=== PATIENT | male | born 1950 | race Caucasian/White ===

== ENCOUNTER → 2024-05-10 09:46 | Outpatient (REF) | payer MEDICARE, OTHER, SELFPAY | LOC: RAD 09:46 | PROVIDERS: ATTENDING PHYSICIAN Otolaryngology; FAMILY PHYSICIAN Family Medicine | DX: K21.9 Gastro-esophageal reflux disease without esophagitis (principal); R13.14 Dysphagia, pharyngoesophageal phase | CPT/HCPCS: 74221 ==

== ENCOUNTER → 2024-07-02 12:44 | Outpatient (REF) | payer MEDICARE, OTHER, SELFPAY | LOC: RAD 12:44 | PROVIDERS: ATTENDING PHYSICIAN Physician Assistant; FAMILY PHYSICIAN Family Medicine | DX: E04.2 Nontoxic multinodular goiter (principal) | CPT/HCPCS: 76536 ==

== ENCOUNTER 2025-02-11 16:42 | Observation (INO) | payer MEDICARE, OTHER, SELFPAY ==
[2025-02-11] VITALS (15 sets, daily range): BP systolic 121–173; BP diastolic 58–85; PULSE 65–71; BMI 27.2; BMI 25.2
[2025-02-11 11:25] LABS: Hematocrit 40.5 % (39.0-52.0); Hemoglobin 14.4 g/dL (13.0-18.0); Mean Corp Hgb Conc. 35.6 g/dL (33.0-37.0); Mean Corpuscular Volume 90.8 fL (80.0-94.0); Nucleated Red Blood Cells % 0 % (-); Platelet Count 191 10^3/uL (130-400); Red Cell Dist. Width 13.2 % (11.5-14.5)
[2025-02-11 11:49] LABS: ALT (SGPT) 28 U/L (0-50); AST (SGOT) 37 U/L (17-59); Albumin 4.3 g/dl (3.5-5.0); Alkaline Phosphatase 71 U/L (38-126); Blood Urea Nitrogen 28 mg/dl (9-20); Calcium 9.4 mg/dl (8.4-10.2); Carbon Dioxide 21 mmol/L (22-30); Chloride 106 mmol/L (98-107); Glucose 125 mg/dl (70-99); Potassium 4.2 mmol/L (3.5-5.1); Sodium 134 mmol/L (135-145); Total Protein 6.5 g/dl (6.3-8.2); eGFR > 60.00
--- NOTE | 2025-02-11 12:57 | ED.GENMED ---
History of Present Illness
General
Chief Complaint: Fainting/Passed Out
Source: patient
Time Seen by Provider: 02/11/25 12:46
History of Present Illness
History of Present Illness:
75-year-old male presents to the emergency room for evaluation after passing out at home. Patient and his were in the kitchen having breakfast when she heard a thud. She noticed patient laying on the ground but was not responsive. He did
grunt. No seizure-like activity. After about a minute or so the patient began to come around. He was conversant shortly thereafter. Patient has had a syncopal episode in the past. He had an episode of syncope after getting up out of a chair
quickly 2022 which resulted in a hip fracture. Patient denies having any chest pain or shortness of breath prior to the event. He does endorse having some crampy abdominal pain here in the emergency room prior to having a large bowel movement. He
believes he may have been having this type of pain prior to the event but is not 100 send sure. Patient recently started Aricept because he is been having some difficulty with remembering things.
Past History
Past History
ED Past Medical History: HTN, Hypercholesterolemia and IDDM
ED Past Surgical History: Orthopedic
Social History
Tobacco: Non-smoker
Alcohol: Occasional
Drug: None
Personal:
Living: with family
Phy Exam
Physical Exam
Physical Exam:
General: Awake, Alert, Oriented X3. No acute distress.
Vitals: unremarkable
Head: Atraumatic
Eyes: Pupils equal, EOMI
Throat: Airway intact, no exudates
Neck: Trachea midline
Lungs: Clear and equal b/l
Heart: Regular rate, no murmurs
Abd: Soft, Nontender, No pulsatile mass
Neuro: Nonfocal
Skin: Warm, dry, no rash
Extremities: pulses equal b/l, no edema
Course
Orders/Labs/Results
Orders:
Orders
02/11/25 11:04
Electrocardiogram (*1) Urgent
Reason for Study: Chest Pain
EKG- Treatment ONCE
02/11/25 11:11
Complete Blood Count/With Diff Urgent
Comprehensive Metabolic Panel Urgent
Glycohemoglobin (HgbA1c) Urgent
02/11/25 12:56
0.9% Sodium Chloride 1000 ml [Nss] 1,000 ml IV BOLUS
02/11/25 13:06
Urinalysis Reflex To Culture Urgent
Date Specimen was Collected: 02/11/25
Time Specimen was Collected: 12:58
Urine Microscopic Reflex Cult Urgent
02/11/25 Dinner
2200 calorie (18 carb) Diabetic
At Your Request: Full Participation
02/11/25 16:07
Admit/Transfer Patient As Directed
Co-Sign Provider:
Level of Care: Observation services
Assign to:: Telemetry
Physician / Group: Hospitalists
Diagnosis: Syncope
Reason for Telemetry: Syncope
Date to Stop Telemetry: 02/13/25
Time to Stop Telemetry: 11:00
02/11/25 16:08
PRN Pain Medication Management As Directed
May give lesser potent ordered pain med per pt: Yes
preference::
Protocol:: Medication orders for pain may be administered in a
manner that supports deferring to patient preference
when the pt is:
- Requesting an ordered lesser potent pain medication.
Least to most potent pain medications are defined
as: acetaminophen < NSAID < tramadol < opioids
(morphine, oxycodone, hydromorphone).
- Requesting a lesser dose of the same medication IF
ORDERED.
- Requesting a less intrusive route of administration
if both routes are prescribed by the provider (PO <
IV).
02/11/25 16:11
Code Status As Directed
Resuscitation Status: Full Code
12/09/25 16:18
Orthostatic Vital Signs As Directed
Orthostatic VS Frequency: Daily
Comment: in AM
02/11/25 17:24
TSH Reflex To Free T4 Urgent
02/11/25 18:23
Bisacodyl [Dulcolax] 10 mg RECTAL [id number] PRN
Docusate W/Senna [Senokot-S] 1 tablet PO BIDPRN PRN
Enoxaparin Sodium [Lovenox] 40 mg SC QPM
Polyethylene Glycol Powder [Miralax] 17 grams PO DAILYPRN PRN
02/11/25 18:23
Activity As Directed
Activity Level: As Tolerated
Vital Signs As Directed
Frequency: Per unit guidelines
DX Deep Vein Thrombosis Video Routine
02/11/25 20:00
Docusate Sodium [Colace] 100 mg PO BID
02/11/25 22:00
Famotidine [Pepcid] 40 mg PO HS
02/12/25 06:54
Basic Metabolic Panel IN AM
Complete Blood Count/No Diff IN AM
02/12/25 08:00
Aspirin Low Dose EC [Aspir Low (Enteric Coated)] 81 mg PO DAILY
Pantoprazole [Protonix] 40 mg PO DAILY
Pravastatin Sodium [Pravachol] 20 mg PO DAILY
Psyllium [Metamucil, Konsyl] 1 packet PO DAILY
Sertraline HCl [Zoloft] 50 mg PO DAILY
02/13/25 11:00
DC Protocol for Telemetry ONCE
Abnormal Lab Results
02/11/25 02/11/25
11:11 13:06
WBC 4.7 L 10^3/uL
(4.8-10.8)
RBC 4.46 L 10^6/uL
(4.70-6.10)
MCH 32.3 H pg
(27.0-31.0)
MPV 11.2 H fL
(7.4-10.4)
Sodium 134 L mmol/L
(135-145)
Carbon Dioxide 21 L mmol/L
(22-30)
BUN 28 H mg/dl
(9-20)
Glucose 125 H mg/dl
(70-99)
Hemoglobin A1c 6.1 H %
(4.0-5.9)
Urine Ketones 2+ A
(Negative)
Ur Occult Blood Reflex 1+ A
(Negative)
Urine RBC 7-10 A /HPF
(0-2)
Urine Bacteria (Reflex) Few A
(Negative)
Urine Albumin (Reflex) 2+ A
(Neg - Trace)
02/11/25 11:11
02/11/25 11:11
Vital Signs
Initial and Last Documented VS:
Initial Vital Signs
Temp Pulse Resp BP Pulse Ox
97.6 F 56 18 149/67 100
02/11/25 10:59 02/11/25 10:59 02/11/25 10:59 02/11/25 10:59 02/11/25 10:59
Last Documented Vital Signs
Temp Pulse Resp BP Pulse Ox
98.7 F 72 12 142/65 99
02/12/25 11:00 02/12/25 11:00 02/12/25 11:00 02/12/25 11:00 02/12/25 11:00
MDM/Problems Addressed
Differential Diagnosis Includes:
Electrolyte abnormality, renal failure, CVA or TIA, medication effect, dysrhythmia
MDM/Problems Addressed:
Patient presents after having a event where he collapsed at home. No clear explanation of his symptoms based upon his labs. He was observed on the front desk monitor and was noted to have episodes of fairly significant bradycardia down to the low
30s. He was symptomatic with this. Suspect that the Aricept he started on recently may be contributing. Patient will require admission for monitoring of his heart rate, further evaluation.
Chronic conditions affecting care: HTN
*Pulse Oximetry
SaO2: 100
Oxygen Mode of Delivery: Room air
Patient hypoxic: no
*EKG
Interpreted by ED Provider?: Yes
Heart Rate: 55
Rate: bradycardiac
Rhythm: sinus
Mcguffey: normal axis
Interval: normal interval
QRS Pattern: normal QRS
Ischemia: no ischemia
*Re Examiner Interpretation
Rate: bradycardiac
Interpretation: abnormal
Rhythm: sinus
*Critical Care Note
Total Time (30-74mins, 75-104mins- exclusive of procedures): Not Applicable
ED Attending Note
-
Portions of this chart may have been created with voice recognition software.� Occasional wrong word or��sound alike� substitutions may have occurred due to the inherent limitations of voice recognition software.
Discharge Plan
Departure
Patient Disposition: Admit
Date of Disposition: 02/11/25
Time of Disposition: 13:33
Admit to: Telemetry
Presentation/result/management discussed w/ accepting MD/DO: Hospitalist
Condition: Fair
Discharge Problem:
Symptomatic bradycardia
Interventions
Interventions:
*Risk Screen - Suicide Last Done: 02/11/25 18:30
*General Assessment Last Done: 02/11/25 11:45
*Neglect/Abuse Screening Last Done: 02/11/25 17:26
*ED COVID-19 Vaccine History Last Done: 02/11/25 18:30
*ED Influenza Vaccine History Last Done: 02/11/25 17:26
[facility] Fall Risk Assessment Tool Last Done: 02/11/25 17:26
*Nursing Disposition Last Done: 02/11/25 18:10
ED- Cardiac Assessment Last Done: 02/11/25 11:45
ED- Neurological Assessment Last Done: 02/11/25 11:45
Discharge Date and Time
Discharge Date/Time: 02/11/25 18:13
[2025-02-11] MEDS: NSS 1000 IV (13:07)
[2025-02-11 13:40] LABS: Urine Character Clear (Clear)
--- NOTE | 2025-02-11 17:02 | HPS.HSE ---
Family Physician
-
Family Physician: Riley Rocha
Chief Complaint
-
Syncope
History of Present Illness
Patient is a 75-year-old male [facility] significant for hypertension, hyperlipidemia, type 1 diabetes, GERD, anxiety and depression who presented to [facility] after having a syncopal episode at home. Patient states that he stood up after sitting in his
kitchen table drinking coffee this morning and then woke up on the floor. His said that he fainted and was unconscious for about 2 minutes. Patient denied any brain fog or confusion after regaining consciousness. Patient denied any tongue
biting or loss of control of bowel or bladder. Patient denied hitting his head, but does note that he hit his left elbow on the floor. Patient says this has happened to him once before in 2022 where patient had an episode of syncope where when he
fell he broke his hip and he did a hip replacement. Patient gets occasional dizziness when going from seating to standing, however he feels this most often associated with low blood sugars. Patient has had an insulin pump and blood sugar monitor
for 20 years. Patient's blood sugars were normal during his syncopal episode today. Of note patient has donepezil for memory loss within the last month as prescribed by his PCP.
ED course:
In the ED, patient was blood work was unremarkable. Vital signs: BP 149/67, HR 56, RR 18, O2 sat 100% on room air. Patient was placed on telemetry and noted to have heart rates in the 30s. EKG showed sinus bradycardia with no significant change
from prior EKG. Urinalysis was negative. 1 L normal saline was given. Patient noted to have another syncopal episode in the ED lasting 20 to 30 seconds. Vitals: BP 144/58, HR 64, RR 21 O2 sat 100% on RA.
Patient will be admitted to observation with telemetry for further workup of syncopal event.
Medical History
Past Medical History
Past Medical History: Reports Dementia, GERD, HTN, Hypercholesterolemia and IDDM
Past Surgical History: Reports Orthopedic
Social History
Tobacco: Former Smoker
Alcohol: Daily
Drug: None
Personal:
Living: With Family
Employment: Retired
Family History
Family History: Not pertinent
Allergies / Home Medications
Allergies reflects when Allergies were last updated in [facility].
Home Medications with original date entered in [facility]
Allergy/Medication List:
Allergies
Allergy/AdvReac Type Severity Reaction Status Date / Time
Cephalosporins Allergy Hives Verified 02/11/25 10:59
levofloxacin (From Levaquin) Allergy Hives Verified 02/11/25 10:59
Home Medications
aspirin 81 mg tablet 81 mg PO DAILY Blood Clot Prevention/Tx 10/14/22
famotidine 40 mg tablet 40 mg PO HS Gastrointestinal Issue 10/14/22
omeprazole 40 mg capsule,delayed release 40 mg PO DAILY GERD 10/14/22
sertraline 50 mg tablet 50 mg PO DAILY Mental Health/Anxiety 10/14/22
lisinopril 2.5 mg tablet 2.5 mg PO DAILY #30 tabs 10/25/22
Patient Own Insulin Pumps 1 sliding scale dose SC .VIA NOVOLOG 02/11/25
docusate sodium 100 mg capsule 100 mg PO BID Constipation 02/11/25
donepezil 5 mg tablet 5 mg PO HS Mental Health/Anxiety 02/11/25
pravastatin 20 mg tablet 20 mg PO DAILY High Cholesterol 02/11/25
psyllium 1 packet PO DAILY Constipation 02/11/25
Review of Systems
-
History Source: Patient
Constitutional: Reports No Symptoms
EENT: Reports No Symptoms
Respiratory: Reports No Symptoms
Cardiac: Reports No Symptoms
Abdomen/GI: Reports No Symptoms
: Reports No Symptoms
Musculoskeletal: Reports No Symptoms
Skin: Reports No Symptoms
Neurological: Reports No Symptoms
Endocrine: Reports No Symptoms
Hematologic/Lymphatic: Reports No Symptoms
Psych: Reports No Symptoms
Physical Exam
Vital Signs
Vital Signs
Temp Pulse Resp BP Pulse Ox
97.6 F 54 20 148/65 100
02/11/25 10:59 02/11/25 12:45 02/11/25 12:45 02/11/25 12:16 02/11/25 13:01
Physical Exam
General: Well Developed, Well Nourished, No Apparent Distress and Comfortable
HEENT: NormoCephalic, Anicteric and Moist mucous membranes
Respiratory: Clear
Cardiac: Regular Rhythm
GI: Soft, Non Tender, Non Distended and Other (Insulin pump in place)
Musculoskeletal: No Edema
Skin: Warm and Dry
Neuro: Awake, Alert and Oriented
Psych: Calm
Laboratory Results
-
02/11/25 11:11
02/11/25 11:11
Laboratory Results
Total Bilirubin 0.8 mg/dl (0.2-1.3) 02/11/25 11:11
AST 37 U/L (17-59) 02/11/25 11:11
ALT 28 U/L (0-50) 02/11/25 11:11
Alkaline Phosphatase 71 U/L (38-126) 02/11/25 11:11
Impression/Plan
-
IMPRESSION:
Syncopal episodes
Diabetes�insulin-dependent
Dementia
Hypertension
Arthritis
Hyperlipidemia
Depression/anxiety
GERD
PLAN:
# Syncopal episodes
- Unclear etiology
- Patient does have history of orthostatic hypotension
- Rhythm strip shows bradycardia
- Monitor on telemetry
- Consulted cardiology will see in a.m.
- Orthostatic vitals
- Hold donepezil and lisinopril
- Ordered echo
# Diabetes
- continue insulin pump.
- Patient was not hypoglycemic during syncopal episodes
- Consulted diabetes management
# Dementia
- Hold donepezil
# Right shoulder pain with arthritis was seen by orthopedics recently
# History of hypertension
- hold lisinopril
# Hyperlipidemia
- continue statin
# Depression
- continue sertraline
# GERD
- continue PPI, Pepcid
DVT PPx: Lovenox
CODE STATUS: Full code
[2025-02-11 17:27] LABS: Glucose - Point of Care 143 mg/dl (70-99)
--- NOTE | 2025-02-11 17:43 | W.PN.UPDATE ---
Update Note
Progress Note Update
Seen and examined the patient earlier today. Late documentation. Seen the patient with the resident. Agree with the plan of care. See changes in my documentation.
75-year-old pleasant man came in because he had a syncopal event. He stated that he stood up from the coffee table too fast and then passed out for a few minutes. He landed on the left elbow. Patient was started on Aricept 4 weeks ago. He had
another syncopal event 30 seconds in the ER blood pressure afterwards was stable at 173/85. Mildly bradycardic. Updated vitals showed heart rate 64 blood pressure 144/58 saturations 100%.
witnessed the episodes. 1st one was 2 min. He came around per . 2 nd episode in ER while sitting in the bed and a third on in ER
On examination pleasant awake alert
Cardiovascular system slightly bradycardic
Chest clear to auscultation abdomen soft and nontender
No pedal edema
Neuroexam appeared to be nonfocal no facial droop or motor deficit
Both EKGs were reviewed by me-sinus rhythm and sinus bradycardia with no ischemic changes
# Syncope-1 episode at home and 2 episodes in the ER
Unclear reason
Patient does have history of orthostatic hypotension
Rhythm strip shows bradycardia
Hold Aricept as this can cause bradycardia
Monitor on telemetry
Atropine as needed for bradycardia if patient has bradycardia
EKG showed sinus rhythm with no ischemia
Check head CT, EEG, TSH orthostatic vital signs
Hold Aricept and lisinopril
Check Echo, Troponins
Cardiology eval
# Diabetes-continue insulin pump. Patient was not hypoglycemic when this happened
# Dementia-hold Aricept
# Right shoulder pain with arthritis was seen by orthopedics recently
# History of hypertension-hold lisinopril
# Hyperlipidemia-continue statin
# Depression-continue sertraline
# GERD-continue PPI, Pepcid
# DVT prophylaxis-Lovenox
# Full code
Spoke to and updated.
D/W VITICULTURIST
time over 75 min
Part of this note was created using voice recognition system. Occasional wrong word or��sound alike� substitutions may have inadvertently occurred due to the inherent limitations of voice recognition software. If noted kindly bring it to my
attention for correction.
[2025-02-11 18:18] LABS: Troponin I < 0.012 ng/ml
[2025-02-11] MEDS: LOVENOX 40 MG SC (18:45)
[2025-02-11 18:56] LABS: Glucose - Point of Care 154 mg/dl (70-99)
--- NOTE | 2025-02-11 19:25 | PTCARENOTE ---
Received pt from ED into room 408-1. Pt able to stand/pivot to bed with assist x1-2. Pt denies dizziness. Pt lungs clear, apical regular, no edema, hypoactive bowel sounds, continent b/b, skin intact. Pt placed on bed alarm d/t recent syncope. Pt
has own insulin pump in LLQ of abdomen. Pt pre-dinner sugar 154. Pt administered 2.7 units of own insulin. Pt oriented to room, call isaac within reach, no needs at this time.
--- NOTE | 2025-02-11 20:30 | FALL ---
Addendum entered by Deena Becerra RN 02/12/25 04:15:
DIRECTOR OF INFECTION PREVENTION ordered neuro checks per unit guidelines, WNL.
Original Note:
Description of Fall:
pt bed alarm going off. this RN and PCT enter room and pt is found on ground. pt is assisted back into bed by this RN and PCT. VS temp 97.5, HR 62, RR 20, BP 160/69, 98 RA. pt stated 'i started to not feel good so i stood up.' pt reports dizziness,
lightheadedness, and increased salivation at time of fall. pt denies loss of consciousness. pt states he hit his head 'but not too bad,' and denies SHAW and pain. no injuries present from fall. pt educated on fall precautions and using call isaac for
assistance. DIRECTOR OF INFECTION PREVENTION and property supervisor made aware. DIRECTOR OF INFECTION PREVENTION came to bedside, no new orders at this time. call isaac within reach and bed alarm pulled in. plan of care ongoing.
Injuries Noted:
No injuries noted.
Action Taken:
pt educated on fall precautions and using call isaac for assistance.
DIRECTOR OF INFECTION PREVENTION and property supervisor notified.
Name of Provider Notified: EMIL Horan
[2025-02-11] MEDS: COLACE 100 MG PO (20:33)
[2025-02-11] MEDS: PEPCID 40 MG PO (20:33)
[2025-02-11 21:06] LABS: Glucose - Point of Care 193 mg/dl (70-99)
[2025-02-11] MEDS: PT'S OWN INSULIN PUMP - NovoLOG 0.8 UNIT SC (21:27)
[2025-02-12] VITALS (8 sets, daily range): BP systolic 113–165; BP diastolic 65–83; PULSE 66–88; O2SAT 99
[2025-02-12 00:21] LABS: Glucose - Point of Care 159 mg/dl (70-99)
[2025-02-12] MEDS: PT'S OWN INSULIN PUMP - NovoLOG 0.6 UNIT SC (00:32)
[2025-02-12 01:20] LABS: Troponin I 0.016 ng/ml
[2025-02-12] MEDS: PT'S OWN INSULIN PUMP - NovoLOG SC (06:09)
[2025-02-12 06:10] LABS: Glucose - Point of Care 119 mg/dl (70-99)
[2025-02-12 07:19] LABS: Glycohemoglobin (HgbA1c) 6.1 % (4.0-5.9)
--- NOTE | 2025-02-12 07:35 | CON.CAR ---
Addendum entered and electronically signed by Gerald Hicks DO 02/12/25 12:04:
I saw and examined the patient.
The Melter Caster's note was reviewed and I agree with the note.
Comment:
Patient is a very pleasant 75-year-old male with a past medical history significant for hypertension, hyperlipidemia, diabetes type 1 with insulin pump managed by endocrinology, mild cognitive impairment recently started on Aricept December 2024 who
presents following recurrent episodes of syncope. Patient reported loss of consciousness on Monday while making breakfast, he stood up to change position and then suddenly found himself on the floor. Patient's found him and for period of
time, patient was not speaking coherently without reported dysarthria. Mental status improved and was A&O x 3 but 911 was called and patient brought to the emergency room for evaluation. On presentation, patient initial EKG demonstrated sinus
bradycardia with one-to-one conduction and 55 bpm QT/QTc 468/447 ms. during evaluation in the emergency department, patient had an additional episode of syncope in the emergency room on the stretcher but without clear correlated change in heart rate
or blood pressure or rhythm change. A third episode again occurred in the emergency department while on stretcher without correlated change in heart rate, rhythm, or blood pressure. Review of telemetry does show episodes where patient is sinus
rhythm with sinus slowing and junctional escape which is brief and return of sinus rhythm with appropriate heart rate however these episodes do not appear to correlate to his episodes of syncope. Patient had an additional episode upon transferring
to his inpatient room where he felt lightheaded but without loss of consciousness. That episode similarly did not correlate with a sinus pause or junctional escape however was noted to be in sinus bradycardia with one-to-one conduction. Patient
has noted increasing lightheadedness and dizziness since initiation of Aricept in December however the syncope is a new symptom for him. Overall, he denies any chest pain, shortness of breath, palpitations, PND, orthopnea, edema, or focal weakness.
In review of rhythm strips and telemetry, again, patient noted to have episodes of sinus rhythm as well as sinus bradycardia and sinus slowing with a junctional escape which may be related to parasympathetic tone. In further review, patient states
that each of the episodes that he experienced with lightheadedness and dizziness, he also experienced significant nausea and salivation without emesis. Overnight last night, patient had another episode of sinus slowing with junctional escape
however this did not correlate with symptoms. Since that episode at 2100 on 02/11/2025, patient had no further episodes of sinus slowing with junctional escape. Patient's last dose of Aricept was Monday evening 02/10/2025. Remaining evaluation has
been unremarkable so far. Patient's echocardiogram normal LV RV function EF 70 to 75%, no significant valvular disease. Repeat EKG demonstrates Sinus rhythm 64 bpm QT/QTc 460/474 ms no significant change from prior. Troponin negative x 2 and
thyroid function normal. Renal function, electrolytes stable
GENERAL: no acute distress
EYE: sclera anicteric
NECK: Supple, no JVD, no carotid bruit appreciated
ENT: normal nose, moist mucosal membranes
CARDIAC: Regular rate and rhythm, +S1/S2, no murmur, rubs, or gallops
CHEST/PULMONARY: Normal effort, clear breath sounds
ABDOMEN: Soft, without focal tenderness or distention
NEUROLOGICAL: Alert and oriented x3
SKIN: Warm and dry, no rash
PSYCH: Normal and appropriate interaction.
A/P as below
Patient presented with recurrent syncope. At this time, it appears that this is related to adverse effect from medication (Aricept). Patient's episodes of near syncope and syncope have occurred without significant heart rate, rhythm, BP changes.
Patient has demonstrated episodes of sinus slowing which may be related to parasympathetic tone with junctional escape however these episodes did not appear to correlate with patient's syncopal or near syncopal episodes. Patient's last dose of
Aricept was 02/10/2025 in the evening. A documented adverse effect from this medication can be syncope, bradycardia.
At this current time, no indication for permanent pacemaker. Recommend holding/discontinuation of Aricept as this could be reversible cause. Continue telemetry monitoring.
Orthostatic vitals have been negative, will resume low-dose lisinopril again monitoring for symptoms. Recommend repeating orthostatic vitals in a.m.
Further recommendations to follow inpatient monitoring
Original Note:
Consultation
Consultation Request
Date/Time Consultation Requested: 02/11/2025 at 1749
Date/Time Consultation Performed: 02/12/2025 at 0821
Requesting Provider: Dr. Rowe
Performing Provider: Dr. Hicks
Reason for Consultation: Syncope, bradycardia
Medical History
-
History of Present Illness:
Patient came to the ER yesterday after an episode of syncope at home and cardiology is now consulted. About 1 month ago patient saw his PCP and was started on Aricept for mild cognitive impairment described as troubles with his short-term memory.
Patient had an episode yesterday morning where he awoke in his usual state of health and while standing in his kitchen helping his prepare breakfast he had an episode of what he describes as syncope and collapse without clear prodrome. The
patient's was not in the room at the time, but heard a thud and checked on the patient and found him on the floor. Patient was awake, but not speaking logically although no evidence of dysarthria. Patient became more weak and appeared to be
AAO x 3, but his still called 911 and had patient brought to the ER for evaluation. Patient had another episode of syncope in the ER while laying in the stretcher, but not clear if this correlated with any changes in BP or heart rate or
rhythm. That episode was also described as abrupt. Patient had a 3rd episode of syncope while in the ER which he may have had a prodrome to, again no known changes in heart rate or rhythm or BP. Patient had a 4th episode which correlated with a
fall once he reached his inpatient room and patient felt lightheaded and heart rate was in the 30s. Patient has been noted to have intermittent sinus bradycardia and nursing reports that when they check on him he describes feeling lightheaded.
Patient describes that sometimes he feels lightheaded with changing position such as seated to standing. Orthostatic VS were negative while I was in the room during this consultation.
PMH:
Mild cognitive impairment
Started on Aricept 12/17/2024
Type 1 diabetes on insulin pump managed by endocrinology
Hyperlipidemia
HTN
Past Medical History
Past Medical History: Other (In HPI)
Past Surgical History: Orthopedic (Right shoulder, right knee, right femur) and Other (Cataract and retinal procedures)
Social History
Tobacco: Non-Smoker
Alcohol: Daily (4 or more times a week)
Drug: None
Personal:
Living: With Family
Family History
Family History: CAD and Cancer
Allergies / Home Medications
Allergy/AdvReac Type Severity Reaction Status Date / Time
Cephalosporins Allergy Hives Verified 02/11/25 10:59
levofloxacin (From Levaquin) Allergy Hives Verified 02/11/25 10:59
�Medication �Instructions �Recorded �Confirmed �Type
aspirin 81 mg tablet 81 mg PO DAILY Blood Clot 10/14/22 02/11/25 History
Prevention/Tx
famotidine 40 mg tablet 40 mg PO HS Gastrointestinal Issue 10/14/22 02/11/25 History
omeprazole 40 mg capsule,delayed 40 mg PO DAILY GERD 10/14/22 02/11/25 History
release
sertraline 50 mg tablet 50 mg PO DAILY Mental 10/14/22 02/11/25 History
Health/Anxiety
lisinopril 2.5 mg tablet 2.5 mg PO DAILY #30 tabs 10/25/22 02/11/25 Rx
Patient Own Insulin Pumps 1 sliding scale dose SC .VIA 02/11/25 02/11/25 History
NOVOLOG
docusate sodium 100 mg capsule 100 mg PO BID Constipation 02/11/25 02/11/25 History
donepezil 5 mg tablet 5 mg PO HS Mental Health/Anxiety 02/11/25 02/11/25 History
pravastatin 20 mg tablet 20 mg PO DAILY High Cholesterol 02/11/25 02/11/25 History
psyllium 1 packet PO DAILY Constipation 02/11/25 02/11/25 History
Review of Systems
-
History Source: Patient
All other systems: Negative unless noted
Physical Exam
Vital Signs
Temp Pulse Resp BP Pulse Ox
98.6 F 86 18 117/66 98
02/12/25 03:00 02/12/25 03:00 02/12/25 03:00 02/12/25 03:00 02/12/25 03:00
Lab Results
Troponin I 0.016 ng/ml D 02/12/25 00:32
Impression / Plan
-
PCP: Dr. Rocha
Cardiology:
Endocrinology: Aldair JOHNSON
Impression:
Admitted with syncope
Sinus bradycardia and junctional bradycardia
Mild cognitive impairment
Started on Aricept 12/17/2024
Type 1 diabetes on insulin pump managed by endocrinology
Hyperlipidemia
HTN
Echo 02/12/2025: Report pending
Plan:
-Patient came to the ER yesterday after an episode of syncope at home and cardiology is now consulted. About 1 month ago patient saw his PCP and was started on Aricept for mild cognitive impairment described as troubles with his short-term memory.
Patient had an episode yesterday morning where he awoke in his usual state of health and while standing in his kitchen helping his prepare breakfast he had an episode of what he describes as syncope and collapse without clear prodrome. The
patient's was not in the room at the time, but heard a thud and checked on the patient and found him on the floor. Patient was awake, but not speaking logically although no evidence of dysarthria. Patient became more weak and appeared to be
AAO x 3, but his still called 911 and had patient brought to the ER for evaluation. Patient had another episode of syncope in the ER while laying in the stretcher, but not clear if this correlated with any changes in BP or heart rate or
rhythm. That episode was also described as abrupt. Patient had a 3rd episode of syncope while in the ER which he may have had a prodrome to, again no known changes in heart rate or rhythm or BP. Patient had a 4th episode which correlated with a
fall once he reached his inpatient room and patient felt lightheaded and heart rate was in the 30s. Patient has been noted to have intermittent sinus bradycardia and nursing reports that when they check on him he describes feeling lightheaded.
Patient describes that sometimes he feels lightheaded with changing position such as seated to standing. Orthostatic VS were negative while I was in the room during this consultation.
-ECG reviewed by me was initially sinus bradycardia and then NSR
-Telemetry reviewed by me shows intermittent episodes of sinus bradycardia and it looks like there was also an episode of junctional bradycardia
-Echo report pending for 02/12/2025
-Talked with patient and his by phone on the morning of 02/12/2025 reviewing his episodes of syncope and recent past medical history including the addition of Aricept on 12/17/2024. We discussed possible side effects related to Aricept
including bradycardia and orthostasis which may have precipitated his episodes of syncope and near syncope. We made a plan to continue observation on telemetry to look for higher grade heart block or pauses that would necessitate implantation of a
PPM, but if symptoms and telemetry improved with holding of Aricept we will hold off on PPM placement. Patient and are in agreement with plan
-Orthostatic VS in the room while I was present were negative
-Patient noted to be mildly HTN on the morning of 02/12/2025 his usual dose of lisinopril 2.5 mg daily is on hold. Given that his orthostatic VS were negative we will restart lisinopril 2.5 mg daily now, orders placed by me
-Patient is a type I diabetic that follows with endocrinology and is managed with an insulin pump. Blood sugars have been normal thus far this admission and HgbA1c was 6.1% on my review of labs from 02/11/2025. I reviewed the most recent notes from
his endocrinology visit on 02/07/2025
-I also reviewed patient's chart with his PCP in [facility]
-Patient is updated by me on the phone for 12 minutes on 02/12/2025
[2025-02-12 07:59] LABS: Hematocrit 38.0 % (39.0-52.0); Hemoglobin 13.4 g/dL (13.0-18.0); Mean Corp Hgb Conc. 35.3 g/dL (33.0-37.0); Mean Corpuscular Volume 89.6 fL (80.0-94.0); Platelet Count 136 10^3/uL (130-400); Red Cell Dist. Width 13.3 % (11.5-14.5)
[2025-02-12 08:23] LABS: Blood Urea Nitrogen 19 mg/dl (9-20); Calcium 8.9 mg/dl (8.4-10.2); Carbon Dioxide 20 mmol/L (22-30); Chloride 108 mmol/L (98-107); Estimated Creatinine Clearance 85 ml/min; Glucose 129 mg/dl (70-99); Potassium 4.2 mmol/L (3.5-5.1); Sodium 135 mmol/L (135-145); eGFR > 60.00
[2025-02-12] MEDS: ZOLOFT 50 MG PO (08:47)
[2025-02-12] MEDS: METAMUCIL, KONSYL PO ×2 (08:47→09:07)
[2025-02-12] MEDS: PRAVACHOL 20 MG PO (08:47)
[2025-02-12] MEDS: ASPIR LOW (ENTERIC COATED) 81 MG PO (08:47)
[2025-02-12] MEDS: PROTONIX 40 MG PO (08:47)
[2025-02-12] MEDS: COLACE 100 MG PO ×2 (08:47→20:36)
[2025-02-12] MEDS: ZESTRIL 2.5 MG PO (09:51)
[2025-02-12 09:54] LABS: Glucose - Point of Care 143 mg/dl (70-99)
[2025-02-12] MEDS: PT'S OWN INSULIN PUMP - NovoLOG 4 UNIT SC (09:55)
[2025-02-12 12:57] LABS: Glucose - Point of Care 165 mg/dl (70-99)
--- NOTE | 2025-02-12 14:14 | W.PN.UPDATE ---
Update Note
Progress Note Update
Patient seen with residents.
75-year-old pleasant man p/w syncope and fall.
A/P:
# Recurrent Syncope likely due to symptomatic bradycardia
CT head No evidence of acute intracranial abnormality.
orthostatic hypotension ruled out
TSH WNL at 2.05
Echo unrevealing:
1. Ejection fraction is 70-75% by volumetric assessment.
2. Normal left ventricular size, wall thickness and systolic function. No regional wall motion abnormalities are seen.
Cardiology consulted, agree with holding Aricept (relatively new medication) for possible reversible cause of symptomatic bradycardia
Hold off on PPM placement for now
Resume low-dose lisinopril
Other medical conditions:
# Diabetes- continue insulin pump. Patient was not hypoglycemic when this happened
# Dementia- hold Aricept
# Right shoulder pain with arthritis was seen by orthopedics recently
# History of hypertension- resume lisinopril
# Hyperlipidemia- continue statin
# Depression- continue sertraline
# GERD- continue PPI, Pepcid
DVT prophylaxis-Lovenox
Full code
total time 51 min
--- NOTE | 2025-02-12 14:20 | PN.DE.MGMTRT ---
Insulin Management
- -
02/12/2025 Diabetes Management Consult: INSULIN PUMP
74 year old patient admitted 02/11 s/o syncope - fall at home. PMH HTN, HCL, type 1 diabetes for 50 years, dementia, GERD, depression, anxiety, arthritis. Prior to admission was using Medtronic 770 insulin pump with Quick sets, Admelog and
Guardian Sensor. A1C on admission 6.1%, cr 1, eGFR > 60.
Patient is awake alert and oriented in bed, chatting with who is very supportive. Patient states he was not hypoglycemic when he had the fainting spell at home, glucose has been well controlled. He routinely sees Gabrielle Quinteros PA-C at
[facility], he was just there last week. Patient is able to continue to use his insulin pump for bolus for meals and corrections. Insulin pump Bedside worksheet provided and explained to patient. Pump settings:
Basal Cho ratio sensitivity
12am .675 8 35
6am 1 8 35
7am 1 5.5 35
10am 1 8.5 40
12pm 1 8.5 45
5pm 1 9.5 45
9pm .85 9.5 45
11pm .775 9.5 45
24 hour basal total 21.525
Active insulin 2 hours.
Discussed with nurse.
Will follow
Diabetes History
- -
Type of Diabetes: 1
Pre-Admission Diabetes Regimen
02/12/25
06:54
Creatinine 0.8
Lab Results
Hemoglobin A1c 6.1 % (4.0-5.9) H 02/11/25 11:11
Insulin Pump Settings
IP Diabetes Regimen
02/11/25 02/11/25 02/11/25
17:25 18:54 21:05
Glucose
POC Glucose 143 H 154 H 193 H
02/12/25 02/12/25 02/12/25
00:20 06:06 06:54
Glucose 129 H
POC Glucose 159 H 119 H
02/12/25 02/12/25
09:53 12:55
Glucose
POC Glucose 143 H 165 H
Patient Education
[2025-02-12] MEDS: PT'S OWN INSULIN PUMP - NovoLOG 4.5 UNIT SC (14:40)
--- NOTE | 2025-02-12 14:48 | W.PN.HOSP.TC ---
Today's Communication/Plan
-
- Echo today, cardiology consulted
Assessment / Plan
Assessment / Plan
# Syncopal episodes
- Unclear etiology, likely due to bradycardia
- Patient does have history of orthostatic hypotension�negative orthostatic vitals today
- Rhythm strip in ED shows bradycardia
- Monitor on telemetry
- Cardiology following
-Continue hold donepezil and lisinopril
- Echo today
# Diabetes
- continue insulin pump.
- Patient was not hypoglycemic during syncopal episodes
- Consulted diabetes management
# Dementia
- Hold donepezil
# Right shoulder pain with arthritis was seen by orthopedics recently
# History of hypertension
- hold lisinopril
# Hyperlipidemia
- continue statin
# Depression
- continue sertraline
# GERD
- continue PPI, Pepcid
Anticipated Discharge: 24 - 48 hours
Subjective/Interval History
-
Date of Service: February 12, 2025
Patient seen this morning at the bedside. Patient states he is feeling well. Patient kept n.p.o. this morning ahead of cardiology consult. Patient had negative orthostatics in the room.
Objective Data
-
Labs:
Laboratory Results
02/12/25
06:54
WBC 6.5
Hgb 13.4
Hct 38.0 L
Plt Count 136 D
Sodium 135
Potassium 4.2
Chloride 108 H
Carbon Dioxide 20 L
BUN 19
Creatinine 0.8
Glucose 129 H
Calcium 8.9
Vital Signs:
Vital Signs
Temp Pulse Resp BP Pulse Ox
98.7 F 72 12 142/65 99
02/12/25 11:00 02/12/25 11:00 02/12/25 11:00 02/12/25 11:00 02/12/25 11:00
I&O
02/11/25 02/12/25 02/13/25
06:59 06:59 06:59
Output Total 1275 / 1275 525 / 525
Balance -1275 / -1275 -525 / -525
Review of Systems
-
History Source: Patient
Constitutional: Reports No Symptoms
EENT: Reports No Symptoms Reported
Respiratory: Reports No Symptoms
Cardiac: Reports No Symptoms
Abdomen/GI: Reports No Symptoms
Breast: Reports No Symptoms
Genitourinary: Reports No Symptoms
Musculoskeletal: Reports No Symptoms
Skin: Reports No Symptoms
Neuro: Reports No Symptoms
Hematologic / Lymphatic: Reports No Symptoms
Allergy / Immunology: Reports No Symptoms
Physical Exam
-
General: Well Developed, Well Nourished and No Apparent Distress
HEENT: Normocephalic, Atraumatic and Moist Mucous Membranes
Respiratory: Clear to Auscultation
Cardiac: Regular Rhythm
GI: Soft, Nontender and Nondistended
Musculoskeletal: No Edema
Skin: Warm and Dry
Neuro: Awake, Alert and Oriented
Psych: Calm
--- NOTE | 2025-02-12 17:00 | CM ---
IA completed. LEYVA reviewed and placed on chart. Pt is independent in ADLs and IADLs. Lives in a 2 story home with his . There are 2 steps at the entrance to the house. Full BR is on the 2nd floor. there are 13 steps to the 2nd floor. No hx of
HH, SNF or home O2. NO insecurities identified. Confirmed PCP, RX, insurance and drug plan
DME: [employer] in [place] and a shower chair
PCP:Riley Hernandez
Rx: [facility] on [address]
Plan: Home with no needs
[2025-02-12] MEDS: LOVENOX 40 MG SC (17:49)
[2025-02-12 18:04] LABS: Glucose - Point of Care 210 mg/dl (70-99)
[2025-02-12] MEDS: PT'S OWN INSULIN PUMP - NovoLOG 2.9 UNIT SC (18:24)
[2025-02-12 21:08] LABS: Glucose - Point of Care 190 mg/dl (70-99)
[2025-02-12] MEDS: PEPCID 40 MG PO (22:21)
[2025-02-13 03:38] VITALS: BP 144/68
[2025-02-13 07:00] VITALS: BP 151/65
[2025-02-13 07:11] LABS: Glucose - Point of Care 120 mg/dl (70-99)
[2025-02-13 07:22] LABS: Hematocrit 39.0 % (39.0-52.0); Hemoglobin 13.5 g/dL (13.0-18.0); Mean Corp Hgb Conc. 34.6 g/dL (33.0-37.0); Mean Corpuscular Volume 93.5 fL (80.0-94.0); Platelet Count 166 10^3/uL (130-400); Red Cell Dist. Width 13.5 % (11.5-14.5)
[2025-02-13 07:57] LABS: Blood Urea Nitrogen 16 mg/dl (9-20); Calcium 9.1 mg/dl (8.4-10.2); Carbon Dioxide 24 mmol/L (22-30); Chloride 107 mmol/L (98-107); Estimated Creatinine Clearance 68 ml/min; Glucose 138 mg/dl (70-99); Potassium 4.5 mmol/L (3.5-5.1); Sodium 136 mmol/L (135-145); eGFR > 60.00
[2025-02-13] MEDS: PROTONIX 40 MG PO (08:51)
[2025-02-13] MEDS: COLACE 100 MG PO (08:52)
[2025-02-13] MEDS: PRAVACHOL 20 MG PO (08:52)
[2025-02-13] MEDS: ZOLOFT 50 MG PO (08:52)
[2025-02-13] MEDS: ASPIR LOW (ENTERIC COATED) 81 MG PO (08:52)
[2025-02-13] MEDS: PT'S OWN INSULIN PUMP - NovoLOG 0.6 UNIT SC (08:53)
[2025-02-13] MEDS: METAMUCIL, KONSYL 1 PACKET PO (08:53)
[2025-02-13] MEDS: ZESTRIL 2.5 MG PO (08:53)
[2025-02-13 09:01] VITALS: BP 151/65; BP 154/70; BP 170/90; PULSE 60; PULSE 69; PULSE 72
--- NOTE | 2025-02-13 09:32 | W.PN.HOSP.TC ---
Today's Communication/Plan
-
- Per cardiology recommendations restarted lisinopril
- Holding donepezil indefinitely
- Plan for discharge
Assessment / Plan
Assessment / Plan
# Syncopal episodes
- Unclear etiology, likely due to bradycardia
- Patient does have history of orthostatic hypotension�orthostatic vitals negative
- Rhythm strip in ED shows bradycardia
- Monitor on telemetry
- Cardiology following
- Echo yesterday ejection fraction 70 to 75%, normal left ventricle size and function
- Restarted lisinopril
- Continue to hold donepezil
# Diabetes
- continue insulin pump.
- Patient was not hypoglycemic during syncopal episodes
- Consulted diabetes management
# Dementia
- Hold donepezil
# Right shoulder pain with arthritis was seen by orthopedics recently
# History of hypertension
- Restart lisinopril
# Hyperlipidemia
- continue statin
# Depression
- continue sertraline
# GERD
- continue PPI, Pepcid
Anticipated Discharge: Today
Subjective/Interval History
-
Date of Service: February 13, 2025
Patient seen this morning lying in bed. Patient feels well. Patient has not had any episodes of lightheadedness or syncope since being admitted to the floors. Patient denies chest pain, shortness of breath, headache, lightheadedness, nausea,
vomiting. Patient would like to be discharged today.
Objective Data
-
Labs:
Laboratory Results
02/13/25
06:37
WBC 4.7 L
Hgb 13.5
Hct 39.0
Plt Count 166 D
Sodium 136
Potassium 4.5
Chloride 107
Carbon Dioxide 24
BUN 16
Creatinine 1.0
Glucose 138 H
Calcium 9.1
Vital Signs:
Vital Signs
Temp Pulse Resp BP Pulse Ox
97.4 F 74 12 170/90 100
02/13/25 07:00 02/13/25 08:53 02/13/25 07:00 02/13/25 08:53 02/13/25 07:00
I&O
02/12/25 02/13/25 02/14/25
06:59 06:59 06:59
Intake Total 660 / 660
Output Total 1275 / 1275 1275 / 1275
Balance -1275 / -1275 -615 / -615
Review of Systems
-
History Source: Patient
Constitutional: Reports No Symptoms
EENT: Reports No Symptoms Reported
Respiratory: Reports No Symptoms
Cardiac: Reports No Symptoms
Abdomen/GI: Reports No Symptoms
Breast: Reports No Symptoms
Genitourinary: Reports No Symptoms
Musculoskeletal: Reports No Symptoms
Skin: Reports No Symptoms
Neuro: Reports No Symptoms
Endocrine: Reports No Symptoms
Hematologic / Lymphatic: Reports No Symptoms
Allergy / Immunology: Reports No Symptoms
Physical Exam
-
General: Well Developed, Well Nourished and No Apparent Distress
HEENT: Normocephalic, Atraumatic and Moist Mucous Membranes
Respiratory: Clear to Auscultation
Cardiac: Regular Rhythm
GI: Soft, Nontender and Nondistended
Musculoskeletal: No Edema
Skin: Warm and Dry
Neuro: Awake, Alert and Oriented
Psych: Calm
[2025-02-13 11:00] VITALS: BP 155/80
--- NOTE | 2025-02-13 11:05 | W.DCSUMMARY ---
Documented by User: Flori Zhong DO, Resident 02/13/25 12:11
Discharge Summary
Discharge Data
Date of Admission: 02/11/25
Date of Discharge: 02/13/25
-
Pending Results: No
Hospital Course
Primary diagnosis: Syncope and bradycardia
Secondary diagnosis: Type 1 diabetes, dementia
Hospital course:
Patient is a 75-year-old male with PMH significant for dementia recently started on donepezil, hypertension, hyperlipidemia, type 1 diabetes, GERD, anxiety/depression his presented to [facility] after having a syncopal episode at home. Patient stated
that he stood up from his kitchen table in the morning and woke up on the floor. His notes that he fainted and was unconscious for about 2 minutes. Patient presented to the ED. In the ED blood work was unremarkable, vital signs were notable
for bradycardia. Patient was placed on telemetry and noted to have heart rates in the 30s. EKG showed sinus bradycardia with no significant changes. Patient was also noted to have 2 more syncopal episodes lasting 30 seconds to a minute while in
the ED. Patient was noted to not be hypoglycemic during any of the syncopal events. Patient was admitted to observation with telemetry for further workup of syncopal event.
Over the course of admission, cardiology was consulted to assess patient's bradycardia. Cardiology determined that a pacemaker is not required at this time. Orthostatic vitals were negative on 2 occasions. Patient had echo which showed normal LV
and RV function with an ejection fraction of 70 to 75% no significant valvular disease. Repeat EKG demonstrates sinus rhythm at 64 bpm no significant change. Cardiology restarted his blood pressure medication of lisinopril. Given the recent
addition of donepezil to his medications, we believe that this is causing patient to experience bradycardia. We advised the patient to discontinue donepezil indefinitely.
Patient will be discharged home today, advised to follow-up with primary care and dietitian teacher outpatient.
Imaging:
02/11/[address]
IMPRESSION:
No evidence of acute intracranial abnormality.
02/12/2025 echo
SUMMARY
1. Ejection fraction is 70-75% by volumetric assesment.
2. Normal left ventricular size, wall thickness and systolic function. No regional wall motion abnormalities are seen.
Discharge Plan
-
Patient Disposition: Home (Routine Discharge)
Discharge Diagnosis/Procedures: Syncope,
Sinus bradycardia
Condition: Good
Diet: Low Fat, Low Cholesterol and Diabetic, Carb Controlled
Activity: No restrictions
Driving Restrictions: As prior to admission
Bathing Restrictions: None
Activity Restrictions/Additional Instructions:
Please stop taking donepezil indefinitely.
Please follow-up with cardiology for bradycardia.
Referrals:
Riley Rocha MD [Family Provider, Family Practice] - in less than 1 week
Amadeo Vernon MD [Active, Cardiology]
Prescriptions:
Continued
famotidine 40 mg Tablet
40 mg PO HS
aspirin 81 mg Tablet
81 mg PO DAILY
sertraline 50 mg Tablet
50 mg PO DAILY
omeprazole 40 mg Capsule,Delayed Release(Dr/Ec)
40 mg PO DAILY
psyllium Packet
1 packet PO DAILY
pravastatin 20 mg Tablet
20 mg PO DAILY
Patient Own Insulin Pumps
1 sliding scale dose SC .VIA NOVOLOG
docusate sodium 100 mg capsule
100 mg PO BID
lisinopril 2.5 mg Tablet
2.5 mg PO DAILY Qty: 30 0RF
Discontinued
donepezil 5 mg Tablet
5 mg PO HS
Discharge Orders:
Discharge Patient (As Directed); Ordered 02/13/25
Ordered By: Flori Zhong
Discharge Date and Time
Discharge Date/Time: 02/13/25 13:32
Print Language: GIBRALTARIAN

Documented by User: Filomena Rowe MD 02/14/25 08:48
Discharge Summary
Discharge Data
Date of Admission: 02/11/25
Date of Discharge: 02/13/25
Hospital Course
Primary diagnosis: Syncope and bradycardia
Secondary diagnosis: Type 1 diabetes, dementia
Hospital course:
Patient is a 75-year-old male with PMH significant for dementia recently started on donepezil, hypertension, hyperlipidemia, type 1 diabetes, GERD, anxiety/depression; presented to [facility] after having a syncopal episode at home. Patient stated that
he stood up from his kitchen table in the morning and woke up on the floor. His noted that he fainted and was unconscious for about 2 minutes.
In the ED, patient was also noted to have 2 more syncopal episodes lasting 30 seconds to a minute each. His HR was notable for bradycardia (as low as in the 30s). EKG showed sinus bradycardia.
Over the course of admission, cardiology was consulted, and the patient's recently started Aricept was discontinued.
According to cardiology, a pacemaker is not required at this time. It is felt that this could be a reversible bradycardia due to side effect of Aricept. The patient's heart rate did improve while in the hospital, ranging at around 60s.
For comprehensive workup, orthostatic vital sign was checked, and on 2 separate occasions, orthostatic hypotension was ruled out.
His echo was also obtained, which was unrevealing: normal LV and RV function with an ejection fraction of 70 to 75%, no significant valvular disease.
The patient was discharged home and advised to follow-up with PCP and cardiology outpatient.
Imaging:
02/11/[address]
--- NOTE | 2025-02-13 11:40 | W.PN.CARDCBS ---
Today's Communication / Plan
-
DC Aricept
Okay for discharge from cardiology stand
Echo with preserved ejection fraction and no significant valve disease
Telemetry with no further events.
If has further events would consider long-term monitoring.
Impression / Plan
-
PCP: Dr. Rocha
Cardiology:
Endocrinology: Aldair JOHNSON
Impression:
Admitted with syncope
Sinus bradycardia and junctional bradycardia
Mild cognitive impairment
Started on Aricept 12/17/2024
Type 1 diabetes on insulin pump managed by endocrinology
Hyperlipidemia
HTN
Echo 02/12/2025: EF 70% with no significant valvular disease
Plan:
- Patient with no further episodes of syncope. Telemetry was reviewed which is sinus bradycardia but no significant events.
-Echo with preserved ejection fraction and no significant valvular disease
- His blood pressure is stable and actually on the higher side. Restart lisinopril
- The etiology of his syncope remains unclear although Aricept is the likely culprit. Would discharge off Aricept
- If he has further episodes of syncope would consider long-term monitoring
Progress Note - Bilingual Hr Generalist
Subjective
Date of Service: February 13, 2025
He feels well with no further episodes of dizziness or lightheadedness.
Objective
Labs:
02/13/25 06:37
02/13/25 06:37
Labs
Hgb 13.5 g/dL (13.0-18.0) 02/13/25 06:37
Hct 39.0 % (39.0-52.0) 02/13/25 06:37
Plt Count 166 10^3/uL (130-400) D 02/13/25 06:37
Sodium 136 mmol/L (135-145) 02/13/25 06:37
Potassium 4.5 mmol/L (3.5-5.1) 02/13/25 06:37
BUN 16 mg/dl (9-20) 02/13/25 06:37
Creatinine 1.0 mg/dL (0.7-1.3) 02/13/25 06:37
Glucose 138 mg/dl (70-99) H 02/13/25 06:37
Troponins
02/11/25 02/12/25
17:47 00:32
Troponin I < 0.012 0.016 D
Vital Signs and I&O:
Vital Signs
Temp Pulse Resp BP Pulse Ox
97.4 F 74 12 170/90 100
02/13/25 07:00 02/13/25 08:53 02/13/25 07:00 02/13/25 08:53 02/13/25 08:15
Vital Signs
Temp Pulse Resp BP Pulse Ox
97.4 F 74 12 170/90 100
02/13/25 07:00 02/13/25 08:53 02/13/25 07:00 02/13/25 08:53 02/13/25 08:15
Intake & Output
02/11/25 02/12/25 02/13/25 02/14/25
06:59 06:59 06:59 06:59
Intake Total 660 / 660
Output Total 1275 / 1275 1275 / 1275
Balance -1275 / -1275 -615 / -615
Physical Exam
Physical Exam
GEN: No distress, awake, Ox3
HEENT: supple, anicteric, mmm
LUNGS: CTA, no wheezes/rales
CV: Reg, S1/S2, 1/6 syst LSB, no gallop
ABD: soft, BS+, NT/ND
EXT: No edema
NEURO: Gross non-focal
SKIN: No rash
[2025-02-13 11:53] LABS: Glucose - Point of Care 162 mg/dl (70-99)
[2025-02-13] MEDS: PT'S OWN INSULIN PUMP - NovoLOG 0.15 UNIT SC (12:09)
[2025-02-13] MEDS: FLUZONE HIGH-DOSE 2025-26 0.5 ML IM (12:26)
--- NOTE | 2025-02-13 12:28 | CM ---
Pt is discharged home no needs. will transport pt home.
--- NOTE | 2025-02-13 12:53 | W.PN.UPDATE ---
Update Note
Progress Note Update
75-year-old pleasant man p/w syncope and fall.
A/P:
# Recurrent Syncope likely due to symptomatic bradycardia
CT head No evidence of acute intracranial abnormality.
orthostatic hypotension ruled out
TSH WNL at 2.05
Echo unrevealing:
1. Ejection fraction is 70-75% by volumetric assessment.
2. Normal left ventricular size, wall thickness and systolic function. No regional wall motion abnormalities are seen.
Cardiology consulted, agree with holding Aricept (relatively new medication) for possible reversible cause of symptomatic bradycardia
Hold off on PPM placement for now
Resumed low-dose lisinopril
Other medical conditions:
# Diabetes- continue insulin pump. Patient was not hypoglycemic when this happened
# Dementia- hold Aricept
# Right shoulder pain with arthritis was seen by orthopedics recently
# History of hypertension- resume lisinopril
# Hyperlipidemia- continue statin
# Depression- continue sertraline
# GERD- continue PPI, Pepcid
DVT prophylaxis-Lovenox
Full code
[2025-02-13 13:20] VITALS: BP 175/75; BP 176/80; PULSE 70; O2SAT 100
--- NOTE | 2025-02-13 13:59 | PN.DE.MGMTRT ---
Insulin Management
- -
02/13/2025 Diabetes Management Consult: INSULIN PUMP Follow up
74 year old patient admitted 02/11 s/o syncope - fall at home. PMH HTN, HCL, type 1 diabetes for 50 years, dementia, GERD, depression, anxiety, arthritis. Prior to admission was using Medtronic 770 insulin pump with Quick sets, Admelog and
Guardian Sensor. A1C on admission 6.1%, cr 1, eGFR > 60.
Patient is awake alert and oriented out of bed in chair. Patient states he was not hypoglycemic when he had the fainting spell at home, glucose has been well controlled. He routinely sees Vinicio Quinteros PA-C at [facility], he
was just there last week. Patient is able to continue to use his insulin pump for bolus for meals and corrections. Insulin pump Bedside worksheet provided and explained to patient. Pump settings:
Basal Cho ratio sensitivity
12am .675 8 35
6am 1 8 35
7am 1 5.5 35
10am 1 8.5 40
12pm 1 8.5 45
5pm 1 9.5 45
9pm .85 9.5 45
11pm .775 9.5 45
24 hour basal total 21.525
Active insulin 2 hours.
Discussed with nurse.
Will follow
Diabetes History
- -
Type of Diabetes: 1
Pre-Admission Diabetes Regimen
02/13/25
06:37
Creatinine 1.0
Lab Results
Hemoglobin A1c 6.1 % (4.0-5.9) H 02/11/25 11:11
Insulin Pump Settings
IP Diabetes Regimen
02/12/25 02/12/25 02/13/25
18:03 21:07 06:37
Glucose 138 H
POC Glucose 210 H 190 H
02/13/25 02/13/25
07:10 11:51
Glucose
POC Glucose 120 H 162 H
Meal type: Breakfast
Meal type: Lunch
Amount consumed: 100%
Amount consumed: 100%
Patient Education
[2025-02-13 19:14] LABS: Hepatitis C Antibody Negative (Negative)
== END 2025-02-13 13:32 | disposition home or self-care (01) ==
LOC: 4 EAST ACU 16:42
PROVIDERS: Emergency Medicine; ADMITTING PHYSICIAN Hospitalist; ATTENDING PHYSICIAN Internal Medicine; EMERGENCY PHYSICIAN Emergency Medicine; FAMILY PHYSICIAN Family Medicine; OTHER PHYSICIAN Internal Medicine Cardiovascular Disease
DX: R55 Syncope and collapse (principal); R07.9 Chest pain, unspecified; R00.1 Bradycardia, unspecified; Z87.891 Personal history of nicotine dependence; Z79.4 Long term (current) use of insulin; F03.94 Unspecified dementia, unspecified severity, with anxiety; F03.93 Unspecified dementia, unspecified severity, with mood disturbance; I10 Essential (primary) hypertension; M19.011 Primary osteoarthritis, right shoulder; K21.9 Gastro-esophageal reflux disease without esophagitis; Z79.899 Other long term (current) drug therapy; E10.9 Type 1 diabetes mellitus without complications; F32.A Depression, unspecified; I08.3 Combined rheumatic disorders of mitral, aortic and tricuspid valves
CPT/HCPCS: 70450; 80048; 80053; 81003; 81015; 82962; 83036; 84443; 84484; 85025; 85027; 86803; 90662; 93005; 93306; 96360; 97116; 97162; 99285; G0008; G0378